=== PATIENT | female | born 1975 ===

== ENCOUNTER 2018-01-28 16:25 | Emergency (ER) | payer OTHER ==
[2018-01-28 16:36] VITALS: BP 151/98; PULSE 85; RESP 16; TEMP 98.2; O2SAT 98
--- NOTE | 2018-01-28 17:11 | C.PDOC ---
History Of Present Illness 42 y/o female presents to ED with c/o left ear pain for 2 weeks. Patient was seen by PMD 1 week ago and given ear drops which she has used with no improvement. Patient denies recent swimming, fever, chills, headache or any other complaints at this time. Time Seen by Provider: 01/28/18 16:55 Chief Complaint (Nursing): ENT Problem History Per: Patient History/Exam Limitations: None Onset/Duration Of Symptoms: Days Current Symptoms Are (Timing): Still Present Past Medical History Reviewed: Historical Data, Nursing Documentation, Vital Signs Vital Signs: Last Vital Signs Temp 98.2 F 01/28/18 16:32 Pulse 85 01/28/18 16:32 Resp 16 01/28/18 16:32 BP 151/98 H 01/28/18 16:32 Pulse Ox 98 01/28/18 17:11 - Medical History PMH: No Chronic Diseases Surgical History: No Surg Hx Family History: States: No Known Family Hx - Social History Hx Alcohol Use: No Hx Substance Use: No - Immunization History Hx Tetanus Toxoid Vaccination: No Hx Influenza Vaccination: No Hx Pneumococcal Vaccination: No Review Of Systems Except As Marked, All Systems Reviewed And Found Negative. ENT: Positive for: Ear Pain Physical Exam - Physical Exam Appears: Non-toxic, No Acute Distress Skin: Warm, Dry, No Rash Head: Atraumatic, Normacephalic Eye(s): bilateral: Normal Inspection Ear(s): Left: Other (increased cerumen, bulging TM. No mastoid tenderness) Oral Mucosa: Moist Throat: Normal, No Erythema, No Exudate Neck: Supple Cardiovascular: Rhythm Regular Respiratory: Normal Breath Sounds, No Rales, No Rhonchi, No Wheezing Gastrointestinal/Abdominal: Soft, No Tenderness, No Guarding, No Rebound Neurological/Psych: Oriented x3, Normal Speech, Normal Cognition ED Course And Treatment O2 Sat by Pulse Oximetry: 98 (RA) Pulse Ox Interpretation: Normal Medical Decision Making Medical Decision Making: Assessment: Otitis Media, Cerumen Accumulation Disposition - Disposition Referrals: Alexander Villalta MD [Staff Provider] - Disposition: HOME/ ROUTINE Disposition Time: 17:08 Condition: STABLE Additional Instructions: follow up with your doctor or ENT specialist within 2 days call to make an appointment take medication as needed for pain return to ER if symptoms worsens or progress take motrin or advil as needed for pain Prescriptions: Amoxicillin 875 mg PO BID #20 tablet Carbamide Peroxide [Debrox 15 Ml] 1 drop OT BID #1 bottle Instructions: Ear Wax Impaction (DC), Serous Otitis Media (DC) Forms: [employer] (Kazakh) - Clinical Impression Clinical Impression: Otitis media, Cerumen impaction - Scribe Statement The provider has reviewed the documentation as recorded by the Scribdevon Moon All medical record entries made by the Juan Carlosibdeovn were at my direction and personally dictated by me. I have reviewed the chart and agree that the record accurately reflects my personal performance of the history, physical exam, medical decision making, and the department course for this patient. I have also personally directed, reviewed, and agree with the discharge instructions and disposition.
== END 2018-01-28 17:19 | disposition home or self-care (01) ==
LOC: C.ER 16:25
DX: H66.92 Otitis media, unspecified, left ear (principal); H61.22 Impacted cerumen, left ear